=== PATIENT | female | born 1980 | race Caucasian/White ===

== ENCOUNTER 2016-07-08 20:25 | Emergency (ER) | payer MEDICARE, SELFPAY ==
[2016-07-08 21:01] LABS: BASO # 0.1 10_X3_uL (0.0-0.1); BASO % 0.7 % (0.1-1.2); EOS # 0.3 10_X3_uL (0.0-0.4); EOS % 3.5 % (0.7-5.8); GRAN # 4.3 10_X3_uL (1.6-6.1); GRAN % 56.9 % (34.0-71.1); HEMATOCRIT 37.2 % (34-45); HEMOGLOBIN 12.2 g/dL (11.2-15.7); LYMPH # 2.4 10_X3_uL (1.2-3.7); LYMPH % 30.9 % (19.3-51.7); MEAN CORPUSCULAR HEMOGLOBIN 26.2 pg (27.0-33.0); MEAN CORPUSCULAR HGB CONC 32.8 g/dL (32.0-36.0); MEAN PLATELET VOLUME 10.4 fl (7.5-11.5); MONO # 0.6 10_X3_uL (0.2-0.9); PLATELET COUNT 253 x10_3/uL (182-369); RED BLOOD COUNT 4.65 x10_6/uL (3.9-5.2); RED CELL DISTRIBUTION WIDTH 14.7 % (11.7-14.4); WHITE BLOOD COUNT 7.6 x10_3/uL (4.0-10.0)
[2016-07-08 21:23] LABS: ALBUMIN 3.9 gm/dL (3.4-5.0); ALKALINE PHOSPHATASE 58 U/L (50-136); ALT/SGPT 21 U/L (3.5-33.9); AST/SGOT 17 U/L (7.04-26.96); BILIRUBIN,TOTAL 0.16 mg/dL (0.0-1.0); BLOOD UREA NITROGEN 11 mg/dL (7-18); CALCIUM 9.4 mg/dL (8.7-10.7); CARBON DIOXIDE 24 mmol/L (21-32); CREATININE 0.7 mg/dL (0.6-1.3); GLUCOSE,RANDOM 87 mg/dL (70-99); POTASSIUM 3.9 mmol/L (3.5-5.1); SODIUM 141 mmol/L (136-145); TOTAL PROTEIN 6.8 gm/dL (6.4-8.2)
== END 2016-07-08 22:13 | disposition home or self-care (01) ==
LOC: ER 20:25
PROVIDERS: General Practice
DX: K21.9 Gastro-esophageal reflux disease without esophagitis (principal); I10 Essential (primary) hypertension; R12 Heartburn; F17.210 Nicotine dependence, cigarettes, uncomplicated; Z88.0 Allergy status to penicillin; Z88.2 Allergy status to sulfonamides; Z88.5 Allergy status to narcotic agent
CPT/HCPCS: 36415; 80053; 84443; 85025; 99283

== ENCOUNTER 2016-08-07 17:10 | Emergency (ER) | payer MEDICARE | END 2016-08-07 17:46 | disposition home or self-care (01) | LOC: ER 17:10 | DX: M25.572 Pain in left ankle and joints of left foot (principal); X50.0XXA Overexertion from strenuous movement or load, initial encounter; Y92.410 Unspecified street and highway as the place of occurrence of the external cause; F17.210 Nicotine dependence, cigarettes, uncomplicated; Z79.1 Long term (current) use of non-steroidal anti-inflammatories (NSAID); Z79.899 Other long term (current) drug therapy; Z79.891 Long term (current) use of opiate analgesic | CPT/HCPCS: 73590; 73610; 73630; 99070; 99283 ==